=== PATIENT | female | born 1990 | race Caucasian/White ===

== ENCOUNTER 2018-04-19 11:56 | Emergency (ER) | payer OTHER ==
[~2018-04-19] VITALS: Ht 170.2 cm; Wt 81.6 kg
== END 2018-04-19 12:20 | disposition home or self-care (01) ==
LOC: ER 12:00
DX: B95.8 Unspecified staphylococcus as the cause of diseases classified elsewhere (principal); L08.9 Local infection of the skin and subcutaneous tissue, unspecified; Z88.5 Allergy status to narcotic agent; F17.200 Nicotine dependence, unspecified, uncomplicated
CPT/HCPCS: A4663